=== PATIENT | female | born 1965 | race Caucasian/White ===

== ENCOUNTER 2021-03-16 14:39 | Emergency (ER) | payer OTHER ==
[~2021-03-16] VITALS: Ht 157.5 cm; Wt 106.6 kg
--- NOTE | 2021-03-16 14:49 | NUR ---
BIBS FOR C/O LEFT EAR PAIN 8/10 X3 DAYS. VITALS ARE WITHIN NORMAL LIMITS. BREATHING IS EVEN AND UNLABORED.
--- NOTE | 2021-03-16 15:25 | NUR ---
PT SEEN BY LUÍS CALHOUN
--- NOTE | 2021-03-16 15:25 | NUR ---
[place] [facility] - 03/16/21 at 1534 by SULTANA PT SEEN BY LUÍS LEWIS
[2021-03-16] MEDS ORDERED: AMOX500T2 PO (15:35)
[2021-03-16 16:01] VITALS: BP 125/84
--- NOTE | 2021-03-16 16:01 | NUR ---
Patient discharged to home in stable condition. Written and verbal after care instructions given. Patient verbalizes understanding of instruction.
== END 2021-03-16 16:02 | disposition home or self-care (01) ==
LOC: ER 14:43
DX: H66.92 Otitis media, unspecified, left ear (principal); I10 Essential (primary) hypertension